=== PATIENT | female | born 1955 | race Caucasian/White ===

== ENCOUNTER → 2024-10-12 | Outpatient (CLI) | payer MEDICARE, SELFPAY ==
--- NOTE | 2024-10-12 13:15 | XR_ITS ---
Examination: Screening digital mammography, bilateral Computer aided detection 3-D breast Tomosynthesis, bilateral Date and time of exam: October 12, 2024 1346 hours Compared to mammograms dating to 07/08/2020 Indication: Screening Technique: Nonmagnified MLO, CC views of the breasts to been obtained, reconstructed from 3-D Tomosynthesis images. R2 computer aided detection program utilized for evaluation of suspicious masses and/or abnormal calcifications. 3-D Tomosynthesis images obtained. Findings: Scattered areas of fibroglandular density 12 mm focal asymmetry outer right breast anterior depth CC view, 4.4 cm from the nipple 17 mm bilobed focal asymmetry lower left breast MLO view, 5.3 cm the nipple Impression: BI-RADS Category 0: Incomplete: Need additional imaging evaluation 12 mm focal asymmetry outer right breast, recommend follow-up spot tomographic views upper outer quadrant right breast 7T millimeter bilobed focal asymmetry lower left breast MLO view, recommend follow-up spot tomographic views lower outer quadrant left breast, recommend bilateral breast sonography follow-up to complete workup
--- NOTE | 2024-10-12 13:27 | XR_ITS ---
Examination:Left hip AP, lateral, AP pelvis 3 views Technique: Hip AP lateral, AP pelvis, 3 views Exam date and time:October 12, 2024 1400 hours INDICATIONS: Onset left hip pain beginning 2 weeks ago. FINDINGS: Significant osteopenia Mild bilateral narrowing hip joints No hip or pelvic fracture IMPRESSION: Mild narrowing hip joints.
== END | disposition home or self-care (01) ==
LOC: CDIM 13:13
PROVIDERS: PCP Family Medicine; Referring Provider Family Medicine; Visit Provider Family Medicine
DX: Z12.31 Encounter for screening mammogram for malignant neoplasm of breast (principal); R92.8 Other abnormal and inconclusive findings on diagnostic imaging of breast; N64.89 Other specified disorders of breast; M25.852 Other specified joint disorders, left hip
CPT/HCPCS: 73502; 77063; 77067

== ENCOUNTER → 2024-11-14 | Outpatient (CLI) | payer OTHER, SELFPAY ==
--- NOTE | 2024-11-14 | XR_ITS ---
Examination: Diagnostic digital mammography, bilateral Computer aided detection 3-D breast Tomosynthesis, bilateral Date and time of exam: November 14, 2024 1032 hours INDICATIONS: Mammogram October 12, 2024 12 mm focal asymmetry outer right breast anterior depth 4.4 cm from the nipple, 17 mm bilateral focal asymmetry lower left breast Technique: Nonmagnified MLO, CC views of the breasts to been obtained, reconstructed from 3-D Tomosynthesis images. R2 computer aided detection program utilized for evaluation of suspicious masses and/or abnormal calcifications. 3-D Tomosynthesis images obtained. Findings: Scattered areas of fibroglandular density Focal asymmetry remains outer right breast on the CC view Focal asymmetry remains lower left breast MLO view Impression: BI-RADS Category 3: Probably benign findings One additional 6 month bilateral mammography follow-up is needed to document stability of focal asymmetries described above.
--- NOTE | 2024-11-14 10:02 | XR_ITS ---
Examination: Breast ultrasound complete, bilateral Date and time of exam: November 14, 2024 1001 hours INDICATIONS: Mammogram October 12, 2024 12 mm focal asymmetry outer right breast, 17 mm bilobed focal asymmetry lower left breast Technique: Real-time grayscale ultrasonographic imaging bilateral breasts, including all 4 quadrants as well as nipple retroareolar and axillary regions. Findings: Sonographic images right breast 4:00 cyst 7 x 6 mm 5:00 cyst 7 x 9 mm No solid nodules Sonographic images left breast 8:00 cyst 9 x 12 mm No solid nodules IMPRESSION: BI-RADS Category 2: Benign findings
== END | disposition home or self-care (01) ==
PROVIDERS: PCP Family Medicine; Referring Provider Family Medicine; Visit Provider Family Medicine
DX: R92.333 Mammographic heterogeneous density, bilateral breasts (principal); N60.01 Solitary cyst of right breast; N60.02 Solitary cyst of left breast
CPT/HCPCS: 76641; 77062; 77066; G0279

== ENCOUNTER 2025-09-22 12:39 | Emergency (ER) | payer OTHER, MEDICARE, SELFPAY ==
[2025-09-22 12:39] VITALS: BMI 29.9
[2025-09-22 12:54] VITALS: BP 140/83; PULSE 98; RESP 18; TEMP 36.7; O2SAT 98
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
== END 2025-09-22 14:50 | disposition home or self-care (01) ==
PROVIDERS: Emergency Provider Emergency Medicine; PCP Family Medicine
DX: R51.9 Headache, unspecified (principal); V48.5XXA Car driver injured in noncollision transport accident in traffic accident, initial encounter
CPT/HCPCS: 70450; 99282